=== PATIENT | male | born 1940 | race Caucasian/White ===

== ENCOUNTER 2023-12-14 15:12 | Outpatient (CLI) | payer MEDICARE, OTHER | END 2023-12-14 15:13 | disposition home or self-care (01) | LOC: BICCT 15:12 | PROVIDERS: ATTEND Internal Medicine Hematology & Oncology | DX: C43.4 Malignant melanoma of scalp and neck (principal); I67.82 Cerebral ischemia | CPT/HCPCS: 70470; 82565 ==